=== PATIENT | male | born 2005 | race Caucasian/White ===

== ENCOUNTER 2025-11-14 08:18 | Emergency (ER) | payer BC, SELFPAY ==
[2025-11-14 08:21] VITALS: BP 127/76; PULSE 100; RESP 16; TEMP 37.4; O2SAT 95; BMI 24.8
--- NOTE | 2025-11-14 08:47 | ED.GENADULT ---
HPI - General Adult General Chief complaint: Chest Pain Stated complaint: Shortness of breath , chest pain Time Seen by Provider: 11/14/25 08:30 Source: patient Mode of arrival: ambulatory Limitations: no limitations History of Present Illness HPI narrative: Patient is a 20-year-old male presenting to the emergency department for chest pain. He states symptoms started yesterday. States he feels short of breath also. Notices the chest pain more me takes a deep breath or coughs but states pain never fully goes away. Vomited once today but has not had any further vomiting. States he still feels slightly nauseated but much improved. 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 Has not noticed any fevers or chills. Has been having a cough. [place] states he has likely been around sick people. Has not had any diarrhea, constipation, abdominal pain, dysuria, vision changes, dizziness. States he had pneumonia diagnosed a couple months ago. No other concerns noted at this time. No other medical issues. No family history of clotting disorders. Related Data Home Medications ?Medication ?Instructions ?Recorded ?Confirmed fexofenadine-pseudoephedrine ER 1 tab PO DAILY 11/14/25 11/14/25 180 mg-240 mg tablet,ext.release 24 hr (Patsy-D 24 Hour) Allergies Allergy/AdvReac Type Severity Reaction Status Date / Time [place] Allergy Intermediate itchy Uncoded 11/14/25 08:29 throat, swelling Review of Systems Status of ROS: Reports: 10 or more systems reviewed and unremarkable except as noted in History and below PFSH PFS Social History How often do you have a drink containing alcohol: never AUDIT-C Alcohol total score: 0 Non-prescribed substance use: denies use Exam Narrative: Exam Narrative: Const: Well-nourished, Well-developed, in mild distress Eyes: PERRL, no conjunctival injection, and symmetrical lids HENT: Atraumatic external nose and ears. Moist mucous membranes. Neck: Symmetric, trachea midline, No thyromegaly. CVS: RRR, No murmurs or gallops. Peripheral pulses 2+ and equal in all extremities RESP: Unlabored respiratory effort. Clear to auscultation bilaterally. GI: Nontender/Nondistended, No rebound or guarding. MSK:Extremities w/o deformity, Normal Active ROM, chest tenderness that he states exactly reproduces his chest pain Skin: Warm, Dry. No rashes or lesions. Neuro: Normal Muscle tone, No focal neurological deficits. Psych: Awake, Alert, & Oriented x3. Appropriate mood and affect. Const: Vital Signs, click to edit/add: Vital Signs - 24 hr 11/14/25 08:21 Temperature 99.3 F Pulse Rate [Pulse Oximeter] 100 Respiratory Rate 16 Blood Pressure [Ri ght Upper Arm] 127/76 Pulse Oximetry 95 Oxygen Delivery Me thod Room Air Course Vital Signs Vital signs: Initial Vital Signs Temperature 99.3 F 11/14/25 08:21 Temperature Source Temporal Artery Scan 11/14/25 08:21 Pulse Rate 100 11/14/25 08:21 Respiratory Rate 16 11/14/25 08:21 Blood Pressure 127/76 11/14/25 08:21 Blood Pressure Mean 93 11/14/25 08:21 Blood Pressure Position Sitting 11/14/25 08:21 Pulse Oximetry 95 11/14/25 08:21 Oxygen Delivery Method Room Air 11/14/25 08:21 Vital Signs Temperature 99.3 F 11/14/25 08:21 Pulse Rate 100 11/14/25 08:21 Respiratory Rate 16 11/14/25 08:21 Blood Pressure 127/76 11/14/25 08:21 Pulse Oximetry 95 11/14/25 08:21 Oxygen Delivery Method Room Air 11/14/25 08:21 Temperature 99.3 F 11/14/25 08:21 Pulse Rate 100 11/14/25 08:21 Respiratory Rate 16 11/14/25 08:21 Blood Pressure 127/76 11/14/25 08:21 Pulse Oximetry 95 11/14/25 08:21 Oxygen Delivery Method Room Air 11/14/25 08:21 Medical Decision Making MDM Narrative Medical decision making narrative: Patient is a 20-year-old male presenting for chest pain. The differential diagnosis of chest pain is broad and includes common etiologies such as musculoskeletal strain, GERD, pneumonia, etc. More serious etiologies considered include PE, coronary artery disease, pneumothorax, aortic dissection, aortic aneurysm. Viral swabs will be ordered. He otherwise looks well my concern for dissection and aortic aneurysm or low. Will do EKG and troponin presents of coronary artery disease. Will do a D-dimer to look for signs of PE. Chest x-ray work liquids signs pneumonia or pneumothorax per also order CBC, BMP. EKG interpreted by myself shows no concerning abnormalities. Viral swabs are positive for influenza A CBC and CMP showed no concerning abnormalities. Troponin within normal limits. Considering length of symptoms repeat troponin isn't necessary at this time. Chest x-ray interpreted by myself and the radiologist does show a is small passing the left lung base which could represent early infiltrate. D-dimer within normal limits. He is flu positive. Will treat him for possible pneumonia with a Z-Chriss. Will also provide him Tamiflu. He is safe for discharge. He is agreeable to this plan. Lab Data Labs: Lab Results 11/14/25 11/14/25 11/14/25 Range/Units 08:30 08:48 08:50 WBC 7.31 (4.50-11.00) K/uL RBC 5.61 (4.30-5.90) m/uL Hgb 16.2 (13.5-17.5) gm/dL Hct 47.3 (37.0-53.0) % MCV 84 (80-100) fL MCH 29 (26-34) pg MCHC 34 (32-36) gm/dL RDW Coeff of Damian 11.8 (11.5-15.5) % Plt Count 193 (140-440) K/uL Neut % (Auto) 79.7 H (42.0-72.0) % Lymph % (Auto) 7.1 L (20-44) % Pacific % (Auto) 11.2 H (0.0-11.0) % Eos % (Auto) 1.4 (0.0-7.0) % Baso % (Auto) 0.5 (0.0-3.0) % Neut # (Auto) 5.80 (1.7-7.0) K/uL Lymph # (Auto) 0.50 L (0.90-2.90) K/uL Pacific # (Auto) 0.80 (0.00-0.90) K/UL Eos # (Auto) 0.10 (0.00-0.50) K/uL Baso # (Auto) 0.04 (0.00-0.30) K/uL Abs Immat Gran (auto) 0.01 (0.00-0.30) K/uL Imm/Tot Granulo (auto) 0.1 % D-Dimer Quant (PE/DVT) < 0.27 (0.00-0.50) ug/ml Sodium 139 (135-149) mmol/L Potassium 3.7 (3.6-5.1) mmol/L Chloride 104 (96-114) mmol/L Carbon Dioxide 26 (20-32) mmol/L Anion Gap 9 (7-15) mEq/L BUN 13 (5-24) mg/dL Creatinine 1.1 (0.5-1.5) mg/dL Estimated Creat Clear 109.68 Estimated GFR 98 ml/min Glucose 111 (60-115) mg/dL Calcium 9.0 (8.4-10.6) mg/dL POC Troponin I High Sensi < 2.9 L (2.9-28.0) pg/mL SARS-CoV-2 (PCR) Negative SARS-CoV-2 (Negative) Influenza Type A (PCR) POSITIVE PCR FLU A A (Negative) Influenza Type B (PCR) Negative PCR FLU B (Negative) RSV (PCR) Negative PCR RSV (Negative) Imaging Data Chest x-ray: Attestation: I have reviewed the pertinent imaging results. Radiologist's impression: Minimal airspace opacity within the left lung base which may represent early infiltrates. Dictated by Omar Augustin MD @ 11/14/2025 9:30:35 AM ECG Data Attestation: I personally reviewed and interpreted this ECG as follows: Prior ECG tracings: not available for review Interpretation: Normal sinus rhythm with a rate of 86 beats per minute, normal intervals, normal axis, no ST or T-wave abnormalities. Discharge Plan Discharge Clinical Impression: Influenza A Pneumonia Qualifiers: Pneumonia type: due to unspecified organism Laterality: left Lung location: lower lobe of lung Qualified Code(s): J18.9 - Pneumonia, unspecified organism Patient Disposition: Home, Self-Care Condition: Stable Instructions: Influenza (ED) Additional Instructions: Cannot say for certain if he if pneumonia or this is all influenza related based on a chest x-ray so will treat you for both influenza and a superimposed pneumonia. Will provide Tamiflu and a Z-Chriss. Follow up with the primary care provider symptoms are not improving by next week. Prescriptions: No Action fexofenadine-pseudoephedrine [Patsy-D 24 Hour] 180-240 mg tablet extended release 24 hr 1 tab PO DAILY Follow Up/Referrals: Provider,Not a Local [Primary Care Provider, Family Practice] Stand Alone Forms: [employer] Info Instructions
[2025-11-14 09:06] LABS: Hematocrit* 47.3 % (37.0-53.0); Hemoglobin* 16.2 gm/dL (13.5-17.5); Immature Granulocytes Abs Auto 0.01 K/uL (0.00-0.30); Immature Granulocytes Pct Auto 0.1 %; Mean Corpuscular HGB Conc 34 gm/dL (32-36); Mean Corpuscular Hemoglobin 29 pg (26-34); Mean Corpuscular Volume 84 fL (80-100); RDW Coefficient of Variation % 11.8 % (11.5-15.5); Red Blood Count* 5.61 m/uL (4.30-5.90); White Blood Count* 7.31 K/uL (4.50-11.00)
--- NOTE | 2025-11-14 09:06 | CRLHL7_ITS ---
For Patients: As a result of the Century Cures Act, medical imaging exams and procedure reports are released immediately into your electronic medical record. You may view this report before your referring provider. If you have questions, please contact your health care provider. Indication: Chest pain Comparison: None available. Technique: PA and lateral views of the chest Findings: Minimal airspace opacity within the left lung base which may represent early infiltrates. No pneumothorax or pleural effusion. The cardiomediastinal silhouette is within normal limits. The bony thorax is grossly intact. Impression: Minimal airspace opacity within the left lung base which may represent early infiltrates. Dictated by Omar Augustin MD @ 11/14/2025 9:30:35 AM (Electronically Signed)
[2025-11-14 09:15] LABS: PCR FLU A POSITIVE PCR FLU A (Negative); PCR FLU B Negative PCR FLU B (Negative); PCR RSV Negative PCR RSV (Negative); SARS PCR* Negative SARS-CoV-2 (Negative)
[2025-11-14 09:20] LABS: Lymphocytes Absolute Auto 0.50 K/uL (0.90-2.90); Slide Review Reflex No
[2025-11-14 09:21] LABS: Chloride* 104 mmol/L (96-114); Potassium* 3.7 mmol/L (3.6-5.1); Sodium* 139 mmol/L (135-149)
[2025-11-14 09:24] LABS: Anion Gap 9 mEq/L (7-15); Blood Urea Nitrogen* 13 mg/dL (5-24); Carbon Dioxide* 26 mmol/L (20-32); Creatinine* 1.1 mg/dL (0.5-1.5); Est. Creatinine Clearance* 109.68; Estimated Glomerular Filt Rate 98 ml/min
[2025-11-14 09:25] LABS: Calcium* 9.0 mg/dL (8.4-10.6); Glucose* 111 mg/dL (60-115)
[2025-11-14 09:57] LABS: D Dimer Quantitative* < 0.27 ug/ml (0.00-0.50)
== END 2025-11-14 10:22 | disposition home or self-care (01) ==
PROVIDERS: Emergency Provider Student in an Organized Health Care Education/Training Program
DX: J10.00 Influenza due to other identified influenza virus with unspecified type of pneumonia (principal); R07.9 Chest pain, unspecified
CPT/HCPCS: 36415; 71046; 80048; 84484; 85025; 85379; 87631; 93005; 99284; 99285